=== PATIENT | female | born 1960 | race Caucasian/White ===

== ENCOUNTER 2021-04-20 11:44 | Emergency (ER) | payer SELFPAY ==
[~2021-04-20] VITALS: Ht 162.6 cm; Wt 68.5 kg
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
--- NOTE | 2021-04-20 12:13 | NUR ---
DR SCHILLING AT BEDSIDE
--- NOTE | 2021-04-20 13:23 | NUR ---
TEXTED DR. JOSE DE JESUS MANZANARES IMAGES TO CALL US BACK.
--- NOTE | 2021-04-20 14:00 | NUR ---
CALLED RYLAN FOR READ.
[2021-04-20] MEDS ORDERED: IBUP-1953 PO (14:23)
[2021-04-20 14:41] VITALS: BP 151/75
--- NOTE | 2021-04-20 14:41 | NUR ---
Patient discharged to home in stable condition. Written and verbal after care instructions given. Patient verbalizes understanding of instruction.
== END 2021-04-20 14:42 | disposition home or self-care (01) ==
LOC: ER 11:47
DX: S16.1XXA Strain of muscle, fascia and tendon at neck level, initial encounter (principal); S03.2XXA Dislocation of tooth, initial encounter; M50.21 Other cervical disc displacement, high cervical region; V43.62XA Car passenger injured in collision with other type car in traffic accident, initial encounter; Y93.89 Activity, other specified; Y92.410 Unspecified street and highway as the place of occurrence of the external cause; Y99.8 Other external cause status
CPT/HCPCS: 70450-TC; 70486-TC; 72125-TC